=== PATIENT | male | born 1985 | race Two or more races ===

== ENCOUNTER 2021-01-17 15:38 | Emergency (ER) | payer OTHER ==
[~2021-01-17] VITALS: Ht 170.2 cm; Wt 85.3 kg
[2021-01-17] MEDS ORDERED: ZESTRIL10 M1 (16:01)
[2021-01-17] MEDS ORDERED: MOXIFLOXACIN H400 MG PO (21:37)
[2021-01-17] MEDS ORDERED: MUCINEX DM ER1 EAC1 PO (21:37)
[2021-01-17] MEDS ORDERED: XOPENEX0.63 MG/3 IH (21:37)
[2021-01-17] MEDS ORDERED: BUDESONIDE0.5 MG/2 M IH (21:37)
[2021-01-17] MEDS ORDERED: MEDROLPACK PO (21:37)
[2021-01-17] MEDS ORDERED: ZYRTEC10 MG PO (21:39)
== END 2021-01-17 21:57 | disposition home or self-care (01) ==
LOC: ER 15:38
DX: J06.9 Acute upper respiratory infection, unspecified (principal); J40 Bronchitis, not specified as acute or chronic